=== PATIENT | female | born 1965 | race Asian ===

== ENCOUNTER 2022-08-01 11:17 | Emergency (ER) | payer OTHER ==
[~2022-08-01] VITALS: Ht 160 cm; Wt 72.6 kg
[2022-08-01 13:46] VITALS: BP 156/94; TEMP 99.3
== END 2022-08-01 13:46 | disposition home or self-care (01) ==
LOC: ED 11:17
DX: J20.9 Acute bronchitis, unspecified (principal); Z20.822 Contact with and (suspected) exposure to COVID-19
CPT/HCPCS: 87502; 87635; 87651; 99283; U0003